=== PATIENT | male | born 1960 | race Caucasian/White ===

== ENCOUNTER 2017-01-06 15:01 | Observation (INO) | payer OTHER ==
[~2017-01-06] VITALS: Ht 165.1 cm; Wt 70.0 kg
[~2017-01-06 15:01] MED LIST: ALLE10TA5 PO; CALCCHW25 PO; MULTCAP14 PO; RIVA20 PO; VITA500C PO
[2017-01-06 15:04] VITALS: BP 144/70; PULSE 71; RESP 18; TEMP 98.6; O2SAT 100
[2017-01-06 17:10] VITALS: BP 144/64; PULSE 75; RESP 18; O2SAT 100
[2017-01-06] MEDS ORDERED: ACETAMINOPHEN/HYDROcodone 325 MG/5 MG TAB PO ONE (17:15)
--- NOTE | 2017-01-06 18:05 | PD ---
HPI Chief Complaint: Edema Time Seen by Provider: 18:01 Travel History International Travel<30 days: No Contact w/Intl Traveler<30days: No Traveled to known affect area: No History of Present Illness HPI 56-year-old male that presents to the ED via private vehicle for evaluation of left leg swelling and pain for the past 2-3 days. 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 Per patient he used to be on blood thinners smoking no longer takes them because he had no primary care doctor. Per patient he went today to his first appointment with his new doctor Dr. Osman from [facility] and he mentioned of the swelling and he was told to come here. He states that he did not hurt himself. He denies any chest pain or shortness of breath. He did taken anything for this. Per patient the swelling started yesterday. No recent travel. Patient is a smoker. Patient was told to come here by the doctor with a note that says that patient is to come here to get evaluated for this possible DVT. Per patient the pain is 7 out of 10. Worse with touch. Takes no medications at home. Has no allergies to medication. Denies any fevers chills or sweats. No drainage. PFSH Past Medical History Autoimmune Disease: No Blood Disorders: Yes (blood clots (previous dvt)) Anxiety: Yes Depression: Yes Cancer: No Cardiovascular Problems: No Diminished Hearing: No Endocrine: No Genitourinary: No Immune Disorder: No Musculoskeletal: No Neurologic: No Psychiatric: Yes Reproductive: No Respiratory: No Immunizations Current: Yes Tetanus Vaccination: < 5 Years Past Surgical History Pacemaker: No Social History Alcohol Use: No Tobacco Use: Yes (1/4 pack) Substance Use: No Allergies-Medications (Allergen,Severity, Reaction): Coded Allergies: No Known Allergies (Unverified , 07/24/15) Reported Meds & Prescriptions Reported Meds & Active Scripts Active No Active Prescriptions or Reported Medications Review of Systems Except as stated in HPI: all other systems reviewed are Neg Physical Exam Narrative GENERAL: SKIN: Warm and dry. HEAD: Atraumatic. Normocephalic. EYES: Pupils equal and round 4 mm reactive to light and accomodation. No scleral icterus. No injection or drainage. ENT: No nasal bleeding or discharge. Mucous membranes pink and moist. Tongue is midline. No uvula deviation. NECK: Trachea midline. No JVD. CARDIOVASCULAR: Regular rate and rhythm. No murmurs, S3, S4. RESPIRATORY: No accessory muscle use. Clear to auscultation. Breath sounds equal bilaterally. GASTROINTESTINAL: Abdomen soft, non-tender, nondistended. Hepatic and splenic margins not palpable. MUSCULOSKELETAL: Extremities without clubbing, cyanosis, or edema. No obvious deformities. Full range of motion of the upper and lower extremities bilaterally. 2+ pulses bilaterally. Patient does have 2+ pitting edema on the left lower extremity compared to the right. Tender to touch as well as on the cough and the medial aspect. NEUROLOGICAL: Awake and alert. No obvious cranial nerve deficits. Motor grossly within normal limits. Five out of 5 muscle strength in the arms and legs. Normal speech. PSYCHIATRIC: Appropriate mood and affect; insight and judgment normal. Data Data Last Documented VS Vital Signs Date Time Temp Pulse Resp B/P Pulse Ox O2 Delivery O2 Flow Rate FiO2 01/06/17 17:10 75 18 144/64 100 Room Air 01/06/17 15:04 98.6 Orders Us Leg Venous Doppler (01/06/17 16:59) Electrocardiogram (01/06/17 16:59) Complete Blood Count With Diff (01/06/17 16:59) Comprehensive Metabolic Panel (01/06/17 16:59) Prothrombin Time / Inr (Pt) (01/06/17 16:59) Act Partial Throm Time (Ptt) (01/06/17 16:59) Iv Access Insert/Monitor (01/06/17 16:59) Ecg Monitoring (01/06/17 16:59) Oximetry (01/06/17 16:59) B-Type Natriuretic Peptide (01/06/17 16:59) Acetamin-Hydrocod 325-5 Mg ([place] 5-325 (01/06/17 17:15) Admit Order (Ed Use Only) (01/06/17 19:35) Enoxaparin Inj (Lovenox Inj) (01/06/17 19:45) Labs Laboratory Tests Test 01/06/17 17:45 White Blood Count 8.1 TH/MM3 Red Blood Count 4.17 MIL/MM3 Hemoglobin 13.5 GM/DL Hematocrit 40.0 % Mean Corpuscular Volume 95.9 FL Mean Corpuscular Hemoglobin 32.3 PG Mean Corpuscular Hemoglobin 33.7 % Concent Red Cell Distribution Width 15.6 % Platelet Count 207 TH/MM3 Mean Platelet Volume 7.7 FL Neutrophils (%) (Auto) 58.7 % Lymphocytes (%) (Auto) 23.5 % Monocytes (%) (Auto) 10.4 % Eosinophils (%) (Auto) 6.0 % Basophils (%) (Auto) 1.4 % Neutrophils # (Auto) 4.7 TH/MM3 Lymphocytes # (Auto) 1.9 TH/MM3 Monocytes # (Auto) 0.8 TH/MM3 Eosinophils # (Auto) 0.5 TH/MM3 Basophils # (Auto) 0.1 TH/MM3 CBC Comment DIFF FINAL Differential Comment Prothrombin Time 11.0 SEC Prothromb Time International 1.0 RATIO Ratio Activated Partial 27.0 SEC Thromboplast Time Sodium Level 130 MEQ/L Potassium Level 3.8 MEQ/L Chloride Level 95 MEQ/L Carbon Dioxide Level 26.4 MEQ/L Anion Gap 9 MEQ/L Blood Urea Nitrogen 3 MG/DL Creatinine 0.96 MG/DL Estimat Glomerular Filtration 81 ML/MIN Rate Random Glucose 96 MG/DL Calcium Level 8.1 MG/DL Total Bilirubin 0.6 MG/DL Aspartate Amino Transf 28 U/L (AST/SGOT) Alanine Aminotransferase 19 U/L (ALT/SGPT) Alkaline Phosphatase 116 U/L B-Type Natriuretic Peptide 27 PG/ML Total Protein 7.3 GM/DL Albumin 2.9 GM/DL [facility] Medical Decision Making Medical Screen Exam Complete: Yes Emergency Medical Condition: Yes Medical Record Reviewed: Yes Interpretation(s) CBC & BMP Diagram 01/06/17 17:45 Coags WNL LFTS WNL BNP negative EKG shows sinus rhythm with no sign of acute ischemia or arrhythmia. Read by me and attending. Last Impressions Lower Extremity Ultrasound 01/06/17 3476 Signed Impressions: Service Date/Time: Friday, January 06, 2017 17:14 - CONCLUSION: 1. Extensive deep venous thrombosis left lower extremity. Hector Starks MD Differential Diagnosis DVT versus leg swelling versus heart failure versus cellulitis Narrative Course 56-year-old male that presents to the ED for evaluation of left lower leg swelling. Patient was properly examined and was found to have signs and symptoms concerning for DVT. Imaging and labs were ordered. Labs and imaging showed extensive DVT on the left leg. My attending Dr. Sewell recommends admission for treatment as patient is a known noncompliant. Patient does have an extensive blood clot likely require anticoagulations with bridging to Coumadin. Spoke with Dr. Bonilla who agrees to admission for Lovenox and bridging to Coumadin. Diagnosis Primary Impression: DVT (deep venous thrombosis) Qualified Code: I82.402 - Acute deep vein thrombosis (DVT) of left lower extremity, unspecified vein Additional Impression: Non-compliant behavior Admitting Information Admitting Physician Requests: Observation Scripts No Active Prescriptions or Reported Meds Denotn Snyder Jan 06, 2017 18:05
[2017-01-06 18:09] LABS: AUTOMATED NEUTROPHIL # 4.7 TH/MM3 (1.8-7.7); BASOPHIL # 0.1 TH/MM3 (0-0.2); BASOPHIL % 1.4 % (0.0-2.0); EOSINOPHIL # 0.5 TH/MM3 (0-0.4); HEMO FLAGS DIFF FINAL; LYMPH % 23.5 % (9.0-44.0); LYMPHOCYTE # 1.9 TH/MM3 (1.0-4.8); MEAN CELL VOLUME 95.9 FL (80.0-100.0); MEAN CORPUSCULAR HEMOGLOBIN 32.3 PG (27.0-34.0); MEAN CORPUSCULAR HGB CONC 33.7 % (32.0-36.0); MONO % 10.4 % (0.0-8.0); NEUT % 58.7 % (16.0-70.0); PLATELET COUNT 207 TH/MM3 (150-450); RED BLOOD COUNT 4.17 MIL/MM3 (4.50-5.90); RED CELL DISTRIBUTION WIDTH 15.6 % (11.6-17.2); WHITE BLOOD COUNT 8.1 TH/MM3 (4.0-11.0)
[2017-01-06 18:31] LABS: ALT (GPT) 19 U/L (12-78); ANION GAP 9 MEQ/L (5-15); AST (GOT) 28 U/L (15-37); BICARBONATE 26.4 MEQ/L (21.0-32.0); BLOOD UREA NITROGEN 3 MG/DL (7-18); CHLORIDE 95 MEQ/L (98-107); GLOMERULAR FILTRATION RATE 81 ML/MIN (>89); POTASSIUM 3.8 MEQ/L (3.5-5.1); SODIUM (NA) 130 MEQ/L (136-145)
[2017-01-06 18:33] LABS: ALKALINE PHOSPHATASE 116 U/L (45-117); TOTAL BILIRUBIN ADULT 0.6 MG/DL (0.2-1.0)
--- NOTE | 2017-01-06 18:54 | RADRPT ---
EXAM DATE/TIME: 01/06/2017 17:14 [place] COMPARISON: No previous studies available for comparison. INDICATIONS : Left leg swelling. MEDICAL HISTORY : Deep venous thrombosis. Tobacco use. Depression. Anxiety. MRSA. SURGICAL HISTORY : Blood transfusions. Anal surgery. Head surgery. ENCOUNTER: Initial ACUITY: 4 - 6 days PAIN SCORE: 5/10 LOCATION: Left leg. TECHNIQUE: Venous ultrasound of the leg was performed from the inguinal ligament to the proximal calf. Real-kimberly e, color Doppler and spectral tracing, compression and augmentation techniques were used. FINDINGS: The examination is positive for deep venous thrombosis extending from the left iliac vein to the post erior tibial vein. Also thrombus in greater saphenous vein. Minimal flow in posterior tibial vein. CONCLUSION: 1. Extensive deep venous thrombosis left lower extremity. Hector Starks MD on January 06, 2017 at 18:50 Board Certified Radiologist. This report was verified electronically.
--- NOTE | 2017-01-06 19:16 | PD ---
Data Data Last Documented VS Vital Signs Date Time Temp Pulse Resp B/P Pulse Ox O2 Delivery O2 Flow Rate FiO2 01/06/17 17:10 75 18 144/64 100 Room Air 01/06/17 15:04 98.6 Orders Us Leg Venous Doppler (01/06/17 16:59) Electrocardiogram (01/06/17 16:59) Complete Blood Count With Diff (01/06/17 16:59) Comprehensive Metabolic Panel (01/06/17 16:59) Prothrombin Time / Inr (Pt) (01/06/17 16:59) Act Partial Throm Time (Ptt) (01/06/17 16:59) Iv Access Insert/Monitor (01/06/17 16:59) Ecg Monitoring (01/06/17 16:59) Oximetry (01/06/17 16:59) B-Type Natriuretic Peptide (01/06/17 16:59) Acetamin-Hydrocod 325-5 Mg ([place] 5-325 (01/06/17 17:15) Labs Laboratory Tests Test 01/06/17 17:45 White Blood Count 8.1 TH/MM3 Red Blood Count 4.17 MIL/MM3 Hemoglobin 13.5 GM/DL Hematocrit 40.0 % Mean Corpuscular Volume 95.9 FL Mean Corpuscular Hemoglobin 32.3 PG Mean Corpuscular Hemoglobin 33.7 % Concent Red Cell Distribution Width 15.6 % Platelet Count 207 TH/MM3 Mean Platelet Volume 7.7 FL Neutrophils (%) (Auto) 58.7 % Lymphocytes (%) (Auto) 23.5 % Monocytes (%) (Auto) 10.4 % Eosinophils (%) (Auto) 6.0 % Basophils (%) (Auto) 1.4 % Neutrophils # (Auto) 4.7 TH/MM3 Lymphocytes # (Auto) 1.9 TH/MM3 Monocytes # (Auto) 0.8 TH/MM3 Eosinophils # (Auto) 0.5 TH/MM3 Basophils # (Auto) 0.1 TH/MM3 CBC Comment DIFF FINAL Differential Comment Prothrombin Time 11.0 SEC Prothromb Time International 1.0 RATIO Ratio Activated Partial 27.0 SEC Thromboplast Time Sodium Level 130 MEQ/L Potassium Level 3.8 MEQ/L Chloride Level 95 MEQ/L Carbon Dioxide Level 26.4 MEQ/L Anion Gap 9 MEQ/L Blood Urea Nitrogen 3 MG/DL Creatinine 0.96 MG/DL Estimat Glomerular Filtration 81 ML/MIN Rate Random Glucose 96 MG/DL Calcium Level 8.1 MG/DL Total Bilirubin 0.6 MG/DL Aspartate Amino Transf 28 U/L (AST/SGOT) Alanine Aminotransferase 19 U/L (ALT/SGPT) Alkaline Phosphatase 116 U/L B-Type Natriuretic Peptide 27 PG/ML Total Protein 7.3 GM/DL Albumin 2.9 GM/DL [facility] Supervised Visit with ALONZO: Yes Narrative Course The history, exam, and medical decision-making in the associated mid-level provider note were completed with my assistance. I reviewed and agree with the findings presented. I attest that I had a [id number] encounter with the patient on the same day, and personally performed and documented my assessment and findings in the medical record. *My assessment and Findings: 56-year-old man presents to the emergency department with worsening lower extremity weakness. History of right sided DVT. Noncompliant medications due to cost. Went to see a doctor with [facility] today. Worsening left- sided edema. He has significant diffuse left lower extremity edema erythema redness pain and swelling. Ultrasound shows extensive DVT. Patient is disheveled, covered in feces, with a history of noncompliance. We'll plan on admission for anticoagulation, monitoring, consideration of intervention if needed. Diagnosis Primary Impression: DVT (deep venous thrombosis) Additional Impression: Non-compliant behavior Scripts No Active Prescriptions or Reported Meds Juarez Sewell MD Jan 06, 2017 19:16
[2017-01-06] MEDS ORDERED: ENOXAPARIN SODIUM 80 MG/0.8 ML SYRINGE SQ ONE (19:45)
[2017-01-06] MEDS ORDERED: LACTULOSE SYRUP 20 GM/30 ML CUP PO PRN (21:00)
[2017-01-06] MEDS ORDERED: ONDANSETRON HCL 4 MG/2 ML VIAL IVP PRN (21:00)
[2017-01-06] MEDS: DOCUSATE SODIUM 50 MG/SENNA 8.6 MG TAB PO SCH (21:00)
[2017-01-06] MEDS ORDERED: NALOXONE HCL 0.4 MG/ML AMP IV PRN (21:00)
[2017-01-06] MEDS ORDERED: SENNOSIDES 8.6 MG TAB PO PRN (21:00)
[2017-01-06] MEDS ORDERED: ACETAMINOPHEN 325 MG TAB PO PRN (21:00)
[2017-01-06] MEDS ORDERED: BISACODYL 10 MG SUPP RECTAL PRN (21:00)
[2017-01-06] MEDS ORDERED: MAGNESIUM HYDROXIDE SUSP 30 ML CUP PO PRN (21:00)
[2017-01-06] MEDS ORDERED: SODIUM CHLORIDE 0.9% FLUSH 10 ML FLUSH IV FLUSH PRN (21:00)
[2017-01-06] MEDS ORDERED: HYDROmorphone HCL PF 1 MG/ML VIAL IV PRN (21:00)
--- NOTE | 2017-01-06 21:02 | HHI.HP ---
HPI Service [facility] Hospitalists Primary Care Physician No Primary Care Physician Admission Diagnosis acute left DVT, non compliant patient Chief Complaint: 2 days pain and swelling left leg Travel History International Travel<30 Days: No Contact w/Intl Traveler <30 Da: No Traveled to Known Affected Are: No History of Present Illness 56 y/o male with hx dvt and has been on blood thinners in past but lost insurance and had no doctor now member [facility] and went to see his PCP saw patient left leg which has been swollen and painful for 2 days and was sent to er and found to have extensive DVT left leg . Patient has been poor compliant in past will start lovenox and coumadin . No other symptoms no SOB ,chest pain nausea or vomit. Review of Systems Musculoskeletal: COMPLAINS OF: Joint Swelling Past Family Social History Past Medical History DVT Past Surgical History none Reported Medications no meds Allergies: Coded Allergies: No Known Allergies (Unverified , 07/24/15) Social History smokes 1/4 ppd Physical Exam Vital Signs Vital Signs Date Time Temp Pulse Resp B/P Pulse Ox O2 Delivery O2 Flow Rate FiO2 01/06/17 17:10 75 18 144/64 100 Room Air 01/06/17 15:04 98.6 71 18 144/70 100 Physical Exam GENERAL: This is a well-nourished, well-developed patient, in no apparent distress. SKIN: No rashes, ecchymoses or lesions. Cool and dry. HEAD: Atraumatic. Normocephalic. No temporal or scalp tenderness. EYES: Pupils equal round and reactive. Extraocular motions intact. No scleral icterus. No injection or drainage. ENT: Nose without bleeding, purulent drainage or septal hematoma. Throat without erythema, tonsillar hypertrophy or exudate. Uvula midline. Airway patent. NECK: Trachea midline. No JVD or lymphadenopathy. Supple, nontender, no meningeal signs. CARDIOVASCULAR: Regular rate and rhythm without murmurs, gallops, or rubs. RESPIRATORY: Clear to auscultation. Breath sounds equal bilaterally. No wheezes , rales, or rhonchi. GASTROINTESTINAL: Abdomen soft, non-tender, nondistended. No hepato-splenomegaly , or palpable masses. No guarding. MUSCULOSKELETAL: Extremities without clubbing, cyanosis, left leg plus 2 edema painful to touch NEUROLOGICAL: Awake and alert. Cranial nerves II through XII intact. Motor and sensory grossly within normal limits. Five out of 5 muscle strength in all muscle groups. Normal speech. Laboratory Laboratory Tests Test 01/06/17 17:45 White Blood Count 8.1 Red Blood Count 4.17 Hemoglobin 13.5 Hematocrit 40.0 Mean Corpuscular Volume 95.9 Mean Corpuscular Hemoglobin 32.3 Mean Corpuscular Hemoglobin 33.7 Concent Red Cell Distribution Width 15.6 Platelet Count 207 Mean Platelet Volume 7.7 Neutrophils (%) (Auto) 58.7 Lymphocytes (%) (Auto) 23.5 Monocytes (%) (Auto) 10.4 Eosinophils (%) (Auto) 6.0 Basophils (%) (Auto) 1.4 Neutrophils # (Auto) 4.7 Lymphocytes # (Auto) 1.9 Monocytes # (Auto) 0.8 Eosinophils # (Auto) 0.5 Basophils # (Auto) 0.1 CBC Comment DIFF FINAL Differential Comment Prothrombin Time 11.0 Prothromb Time International 1.0 Ratio Activated Partial 27.0 Thromboplast Time Sodium Level 130 Potassium Level 3.8 Chloride Level 95 Carbon Dioxide Level 26.4 Anion Gap 9 Blood Urea Nitrogen 3 Creatinine 0.96 Estimat Glomerular Filtration 81 Rate Random Glucose 96 Calcium Level 8.1 Total Bilirubin 0.6 Aspartate Amino Transf 28 (AST/SGOT) Alanine Aminotransferase 19 (ALT/SGPT) Alkaline Phosphatase 116 B-Type Natriuretic Peptide 27 Total Protein 7.3 Albumin 2.9 Result Diagram: 01/06/17 1745 01/06/17 1745 Imaging Last 24 hours Impressions Lower Extremity Ultrasound 01/06/17 1659 Signed Impressions: Service Date/Time: Friday, January 06, 2017 17:14 - CONCLUSION: 1. Extensive deep venous thrombosis left lower extremity. Hector Starks MD Course in er started on lovenox Assessment and Plan Problem List: (1) DVT (deep venous thrombosis) Status: Acute Plan: start lovenox and coumadin will need home health and close follow up with medications . Assessment and Plan as above Code Status full Discussed Condition With patient Problem Qualifiers (1) DVT (deep venous thrombosis): Ruben Whitley MD Jan 06, 2017 21:02
[2017-01-06] MEDS ORDERED: ACETAMINOPHEN/HYDROcodone 325 MG/5 MG TAB PO PRN (21:15)
[2017-01-06] MEDS: ENOXAPARIN SODIUM 80 MG/0.8 ML SYRINGE SQ SCH (21:15)
[2017-01-06] MEDS: SODIUM CHLORIDE 0.9% FLUSH 10 ML FLUSH IV FLUSH SCH (21:38)
[2017-01-06 21:39] VITALS: BP 122/73; PULSE 85; RESP 18; O2SAT 98
[2017-01-07] VITALS (7 sets, daily range): BP systolic 95–115; BP diastolic 59–66; PULSE 65–83; RESP 16–20; TEMP 97.4–99.1; O2SAT 97–100
--- NOTE | 2017-01-07 06:50 | EKG ---
Date Performed: 01/06/2017 Time Performed: 17:24:08 PTAGE: 56 years EKG: Sinus rhythm WITH SINUS ARRHYTHMIA NORMAL ECG PREVIOUS TRACING : 04/07/2014 13.01 No significant change from previous tracing noted. DOCTOR: Vasu Rodriguez Interpretating Date/Time 01/07/2017 06:49:22
[2017-01-07 07:52] LABS: AUTOMATED NEUTROPHIL # 2.6 TH/MM3 (1.8-7.7); BASOPHIL # 0.1 TH/MM3 (0-0.2); BASOPHIL % 2.1 % (0.0-2.0); EOSINOPHIL # 0.6 TH/MM3 (0-0.4); EOSINOPHIL % 9.5 % (0.0-4.0); HEMATOCRIT 37.6 % (39.0-51.0); HEMO FLAGS DIFF FINAL; LYMPH % 32.8 % (9.0-44.0); MEAN CELL VOLUME 96.1 FL (80.0-100.0); MEAN CORPUSCULAR HGB CONC 34.4 % (32.0-36.0); NEUT % 43.6 % (16.0-70.0); PLATELET COUNT 204 TH/MM3 (150-450); RED BLOOD COUNT 3.91 MIL/MM3 (4.50-5.90); RED CELL DISTRIBUTION WIDTH 15.8 % (11.6-17.2)
[2017-01-07 08:10] LABS: ANION GAP 9 MEQ/L (5-15); AST (GOT) 19 U/L (15-37); BICARBONATE 26.2 MEQ/L (21.0-32.0); BLOOD UREA NITROGEN 5 MG/DL (7-18); CHLORIDE 100 MEQ/L (98-107); GLOMERULAR FILTRATION RATE 91 ML/MIN (>89); POTASSIUM 3.7 MEQ/L (3.5-5.1); SODIUM (NA) 135 MEQ/L (136-145)
[2017-01-07 08:12] LABS: ALT (GPT) 14 U/L (12-78)
[2017-01-07 08:13] LABS: ALKALINE PHOSPHATASE 94 U/L (45-117); TOTAL BILIRUBIN ADULT 0.5 MG/DL (0.2-1.0)
--- NOTE | 2017-01-07 09:27 | HHI.PR ---
Subjective Remarks Pt without any specific complaints this morning He states that his LLE is painful still but he has not required any pain medications. Denies any fevers or chills. Pt reportedly lives with roommates No family locally, no children He appears quite unkept Objective Vitals Vital Signs Date Time Temp Pulse Resp B/P Pulse Ox O2 Delivery O2 Flow Rate FiO2 01/07/17 05:10 98.1 75 18 97/59 97 01/07/17 00:05 98.5 65 18 113/63 97 01/06/17 21:39 85 18 122/73 98 Room Air 01/06/17 17:10 75 18 144/64 100 Room Air 01/06/17 15:04 98.6 71 18 144/70 100 01/06/17 01/06/17 01/07/17 15:00 23:00 07:00 Intake Total 200 ml Balance 200 ml Intake Oral 200 ml Result Diagram: 01/07/1717 01/07/17 0617 Other Results Laboratory Tests Test 01/06/17 01/07/17 17:45 06:17 White Blood Count 8.1 TH/MM3 6.0 TH/MM3 Red Blood Count 4.17 MIL/MM3 3.91 MIL/MM3 Hemoglobin 13.5 GM/DL 12.9 GM/DL Hematocrit 40.0 % 37.6 % Mean Corpuscular Volume 95.9 FL 96.1 FL Mean Corpuscular Hemoglobin 32.3 PG 33.0 PG Mean Corpuscular Hemoglobin 33.7 % 34.4 % Concent Red Cell Distribution Width 15.6 % 15.8 % Platelet Count 207 TH/MM3 204 TH/MM3 Mean Platelet Volume 7.7 FL 7.8 FL Neutrophils (%) (Auto) 58.7 % 43.6 % Lymphocytes (%) (Auto) 23.5 % 32.8 % Monocytes (%) (Auto) 10.4 % 12.0 % Eosinophils (%) (Auto) 6.0 % 9.5 % Basophils (%) (Auto) 1.4 % 2.1 % Neutrophils # (Auto) 4.7 TH/MM3 2.6 TH/MM3 Lymphocytes # (Auto) 1.9 TH/MM3 2.0 TH/MM3 Monocytes # (Auto) 0.8 TH/MM3 0.7 TH/MM3 Eosinophils # (Auto) 0.5 TH/MM3 0.6 TH/MM3 Basophils # (Auto) 0.1 TH/MM3 0.1 TH/MM3 CBC Comment DIFF FINAL DIFF FINAL Differential Comment Prothrombin Time 11.0 SEC Prothromb Time International 1.0 RATIO Ratio Activated Partial 27.0 SEC Thromboplast Time Sodium Level 130 MEQ/L 135 MEQ/L Potassium Level 3.8 MEQ/L 3.7 MEQ/L Chloride Level 95 MEQ/L 100 MEQ/L Carbon Dioxide Level 26.4 MEQ/L 26.2 MEQ/L Anion Gap 9 MEQ/L 9 MEQ/L Blood Urea Nitrogen 3 MG/DL 5 MG/DL Creatinine 0.96 MG/DL 0.87 MG/DL Estimat Glomerular Filtration 81 ML/MIN 91 ML/MIN Rate Random Glucose 96 MG/DL 73 MG/DL Calcium Level 8.1 MG/DL 7.8 MG/DL Total Bilirubin 0.6 MG/DL 0.5 MG/DL Aspartate Amino Transf 28 U/L 19 U/L (AST/SGOT) Alanine Aminotransferase 19 U/L 14 U/L (ALT/SGPT) Alkaline Phosphatase 116 U/L 94 U/L B-Type Natriuretic Peptide 27 PG/ML Total Protein 7.3 GM/DL 6.0 GM/DL Albumin 2.9 GM/DL 2.4 GM/DL Imaging Last 24 hours Impressions Lower Extremity Ultrasound 01/06/17 3749 Signed Impressions: Service Date/Time: Friday, January 06, 2017 17:14 - CONCLUSION: 1. Extensive deep venous thrombosis left lower extremity. Hector Starks MD Objective Remarks General: NAD, AAOx3 Chest: CTA Cardiac: Regular Abd: +BS, soft ND/NT Ext: LLE with swelling and erythema/warmth from the foot to the knee A/P Problem List: (1) DVT (deep venous thrombosis) Status: Acute Plan: - Pt is a 56 y/o male with Hx of RLE DVT x 2 (2011 and 2014), hx of bilateral PE (2013), and hx of right lung empyema s/p decortication/chest tube and bronchoscopy (2013). Pt had previously been on Coumadin for his hx of DVT/ PE but has not been taking this for several months as he had a lapse in insurance coverage and medical care. The last anticoagulant he was on was Xarelto. Prior to that he was on Coumadin. - Previous hypercoagulable testing in 2014 noted him to be a heterozygous carrier of factor V Leiden with mutation on ONE allele. - Pt recently established with [facility] and was seen for the first time by his PCP, Dr. Marcus Osman, on 01/06/17 with complaints of LLE swelling and discoloration that began the day prior. He was sent to the ED for further evaluation. - LE US in the ED revealed extensive deep venous thrombosis left lower extremity , extending from the left iliac vein to the posterior tibial vein, also thrombus in greater saphenous vein. Minimal flow in posterior tibial vein. . - He is a long time smoker - Pt was started on Lovenox 70mg Q12H and Coumadin 10mg po daily at admission. - I called [facility] pharmacy to get pricing for new anticoagulants, Eliquis which would be $369.12 for a month supply and Xarelto which would be $791.55 for a month so the pt will be unable to afford these. We will continue the Coumadin and Lovenox for now. - Nursing staff to bathe the pt today. - PT evaluation today - Supportive care - Consider SNF placement at discharge for medical management. - If refusing SNF then he will need HHC and close outpt followup. Assessment and Plan Patient examined. Assessment and plan formulated with Letty De Leon PA-C. I agree with the above. Problem Qualifiers (1) DVT (deep venous thrombosis): Letty De Leon Jan 07, 2017 09:27 Odilon Pinto DO Jan 08, 2017 10:32
[2017-01-07] MEDS: SODIUM CHLORIDE 0.9% FLUSH 10 ML FLUSH IV FLUSH SCH ×2 (09:39→21:00)
[2017-01-07] MEDS: ENOXAPARIN SODIUM 80 MG/0.8 ML SYRINGE SQ SCH ×2 (09:39→21:00)
[2017-01-07] MEDS: DOCUSATE SODIUM 50 MG/SENNA 8.6 MG TAB PO SCH ×2 (09:39→21:00)
[2017-01-07] MEDS ORDERED: MISCELLANEOUS NURSING INFORMATION ONE (10:00)
[2017-01-07] MEDS ORDERED: WARFARIN SOD 10 MG TAB PO SCH (16:00)
[2017-01-08 03:31] VITALS: BP 118/64; PULSE 75; RESP 20; TEMP 97.3; O2SAT 99
[2017-01-08 07:22] VITALS: BP 107/65; PULSE 65; RESP 16; TEMP 98.9; O2SAT 98
[2017-01-08] MEDS ORDERED: PNEUMOCOCCAL POLYVALENT INJ 25 MCG/0.5 ML SYR IM ONE (10:00)
[2017-01-08] MEDS: DOCUSATE SODIUM 50 MG/SENNA 8.6 MG TAB PO SCH (10:09)
[2017-01-08] MEDS: SODIUM CHLORIDE 0.9% FLUSH 10 ML FLUSH IV FLUSH SCH (10:09)
[2017-01-08] MEDS: ENOXAPARIN SODIUM 80 MG/0.8 ML SYRINGE SQ SCH (10:10)
--- NOTE | 2017-01-08 10:16 | HHI.FF ---
Face to Face Verification Diagnosis: (1) Deep vein thrombosis (DVT) of left lower extremity Home Health Nursing Order: Medical education Signs/symptoms of disease process Medication education-adverse effect Nursing assessment with vital signs Instructions: INR daily and send results to pt's PCP, Dr. Marcus Osman Lovenox daily once INR above 2, then stop daily lovenox and change INR to every thursday & I have seen patient Nathan Day on 01/08/17. My clinical findings support the need for the requested home health care services because: Med compliance is questionable Limited ability to care for self Need for psychosocial assistance I certify that my clinical findings support that this patient is homebound because: Need for psychosocial assistance Odilon Pinto DO Jan 08, 2017 10:16
[2017-01-08] MEDS ORDERED: COUM5TAB PO (10:29)
[2017-01-08] MEDS ORDERED: ENOXAPARIN SODIUM 30 MG/0.3 ML SYRINGE SQ ONE (10:30)
--- NOTE | 2017-01-08 10:40 | HHI.PR ---
Subjective Remarks Pt continues with LLE edema, but NOT requiring pain medication. Pt is tolerating PO intake. NO n/v/d Pt denies SOB. Objective Vitals Vital Signs Date Time Temp Pulse Resp B/P Pulse Ox O2 Delivery O2 Flow Rate FiO2 01/08/17 07:22 98.9 65 16 107/65 98 01/08/17 03:31 97.3 75 20 118/64 99 01/07/17 22:47 99.1 73 19 113/60 98 01/07/17 19:11 97.4 83 20 95/65 100 01/07/17 16:00 98.7 70 16 115/59 98 01/07/17 12:00 97.5 78 16 103/66 98 01/07/17 01/07/17 01/08/17 15:00 23:00 07:00 Intake Total 720 ml Output Total 325 ml 125 ml Balance 395 ml -125 ml Intake Oral 720 ml Output Urine Total 325 ml 125 ml # Voids 3 1 Result Diagram: 01/07/1717 01/07/17616 Imaging Last Impressions Lower Extremity Ultrasound 01/06/17 1659 Signed Impressions: Service Date/Time: Friday, January 06, 2017 17:14 - CONCLUSION: 1. Extensive deep venous thrombosis left lower extremity. Hector Starks MD Objective Remarks General: NAD, AAOx3 Chest: CTA Cardiac: Regular Abd: +BS, soft ND/NT Ext: LLE with swelling and erythema/warmth from the foot to the knee A/P Problem List: (1) DVT (deep venous thrombosis) Status: Acute Plan: - Pt is a 56 y/o male with Hx of RLE DVT x 2 (2011 and 2014), hx of bilateral PE (2013), and hx of right lung empyema s/p decortication/chest tube and bronchoscopy (2013). Pt had previously been on Coumadin for his hx of DVT/ PE but has not been taking this for several months as he had a lapse in insurance coverage and medical care. The last anticoagulant he was on was Xarelto. Prior to that he was on Coumadin. - Previous hypercoagulable testing in 2014 noted him to be a heterozygous carrier of factor V Leiden with mutation on ONE allele. - Pt recently established with [facility] and was seen for the first time by his PCP, Dr. Marcus Osman, on 01/06/17 with complaints of LLE swelling and discoloration that began the day prior. He was sent to the ED for further evaluation. - LE US in the ED revealed extensive deep venous thrombosis left lower extremity , extending from the left iliac vein to the posterior tibial vein, also thrombus in greater saphenous vein. Minimal flow in posterior tibial vein. . - He is a long time smoker - Pt was started on Lovenox 70mg Q12H and Coumadin 10mg po daily at admission. - [facility] pharmacy was called to get pricing for new anticoagulants, Eliquis which would be $369.12 for a month supply and Xarelto which would be $791.55 for a month so the pt will be unable to afford these. We will continue the Coumadin and Lovenox for now. - PT - Supportive care - Pt adamantly refused SNF. I discussed this with the pt both yesterday and today (01/08/17) - I continue to feel that SNF would be better option for this patient. I am certainly concerned that he will not do well as an outpatient given his social dynamics. - If patient fails to be compliant with his anticoagulation regimen, patient is at risk for readmission, worsening disease, pulmonary embolism, and . - I have explained the above to Mr. Day. - I have arranged home health care to assist with patient's anticoagulation - Patient will need daily INR and daily Lovenox until his INR is above 2. Once INR is therapeutic, patient will continue to need monitoring of his INR and Coumadin regimen. - Patient is to follow-up with his primary care physician, Dr. Marcus Osman, and one week - Patient is to follow-up with [facility] [place] for oncology in 4 weeks - Please see discharge orders - Pt was interviewed and examined together with Letty De Leon PA-C. Problem Qualifiers (1) DVT (deep venous thrombosis): Odilon Pinto DO Jan 08, 2017 10:40
[2017-01-08] MEDS ORDERED: ENOX100P SQ (10:48)
[2017-01-08 11:00] VITALS: BP 109/69; PULSE 99; RESP 16; TEMP 98.9; O2SAT 98
[2017-01-08 11:23] LABS: INTERNATIONAL NORMALIZED RATIO 1.2 RATIO; PROTHROMBIN TIME - PATIENT 12.9 SEC (9.8-11.6)
== END 2017-01-08 13:46 | disposition home or self-care (01) ==
LOC: NEPC 15:01 → NEDA 19:37 → NEPGCP 22:04
PROVIDERS: ADMIT Hospitalist; ATTEND Hospitalist
DX: I82.422 Acute embolism and thrombosis of left iliac vein (principal); I82.442 Acute embolism and thrombosis of left tibial vein; Z86.711 Personal history of pulmonary embolism; Z79.01 Long term (current) use of anticoagulants; Z91.19 Patient's noncompliance with other medical treatment and regimen; F17.200 Nicotine dependence, unspecified, uncomplicated; Z23 Encounter for immunization
CPT/HCPCS: 80053; 83880; 85025; 85610; 85730; 90732; 93005; 93971; 97163; 99285; G0378; G8987; G8988; J1650

== ENCOUNTER 2017-08-24 16:09 | Emergency (ER) | payer OTHER ==
[~2017-08-24] VITALS: Ht 177.8 cm; Wt 68.2 kg
[~2017-08-24 16:09] MED LIST changes: -ALLE10TA5 PO; -CALCCHW25 PO; +COUM5TAB PO; +ENOX100P SQ; -MULTCAP14 PO; -RIVA20 PO; -VITA500C PO
[2017-08-24 16:11] VITALS: BP 131/62; PULSE 73; RESP 18; TEMP 98.2; O2SAT 100
--- NOTE | 2017-08-24 17:15 | RADRPT ---
EXAM DATE/TIME: 08/24/2017 16:28 [facility] COMPARISON: CHEST SINGLE AP, May 01, 2014, 13:27. INDICATIONS : Short of breath. MEDICAL HISTORY : Chronic obstructive pulmonary disease. SURGICAL HISTORY : None. ENCOUNTER: Initial ACUITY: 2 days PAIN SCORE: 0/10 LOCATION: Bilateral chest FINDINGS: Moderate hyperinflation with mild progression progression of the parenchymal changes right lower lobe . Left lung clear. The heart and pulmonary vascularity are normal. The portion of the bony skeleton visualized is unremarkable. CONCLUSION: Hyperinflation with mild progression of the parenchymal changes right lower lobe.. Slick Obrien MD FACR on August 24, 2017 at 17:12 Board Certified Radiologist. This report was verified electronically.
[2017-08-24 17:36] LABS: AUTOMATED NEUTROPHIL # 4.5 TH/MM3 (1.8-7.7); BASOPHIL # 0.2 TH/MM3 (0-0.2); BASOPHIL % 1.9 % (0.0-2.0); EOSINOPHIL # 0.4 TH/MM3 (0-0.4); EOSINOPHIL % 4.7 % (0.0-4.0); HEMOGLOBIN 10.9 GM/DL (13.0-17.0); LYMPH % 30.6 % (9.0-44.0); LYMPHOCYTE # 2.6 TH/MM3 (1.0-4.8); MEAN CELL VOLUME 98.5 FL (80.0-100.0); MEAN CORPUSCULAR HEMOGLOBIN 34.5 PG (27.0-34.0); MEAN CORPUSCULAR HGB CONC 35.1 % (32.0-36.0); MEAN PLATELET VOLUME 6.8 FL (7.0-11.0); MONO % 10.8 % (0.0-8.0); MONOCYTE # 0.9 TH/MM3 (0-0.9); PLATELET COUNT 363 TH/MM3 (150-450); RED BLOOD COUNT 3.15 MIL/MM3 (4.50-5.90); RED CELL DISTRIBUTION WIDTH 13.1 % (11.6-17.2); WHITE BLOOD COUNT 8.6 TH/MM3 (4.0-11.0)
[2017-08-24 17:41] LABS: BICARBONATE 25.3 MEQ/L (21.0-32.0); CALCIUM 8.7 MG/DL (8.5-10.1); CREATININE 0.77 MG/DL (0.60-1.30)
[2017-08-24] MEDS ORDERED: FOLI400T PO (18:52)
[2017-08-24] MEDS ORDERED: XARE20TA PO (18:52)
[2017-08-24] MEDS ORDERED: MULT-267 (18:52)
[2017-08-24] MEDS ORDERED: VITA100T10 (18:52)
[2017-08-24 18:53] VITALS: BP 142/71; PULSE 74; RESP 18; O2SAT 100
--- NOTE | 2017-08-24 18:59 | PD ---
HPI Chief Complaint: Edema Time Seen by Provider: 18:41 Travel History International Travel<30 days: No Contact w/Intl Traveler<30days: No Traveled to known affect area: No History of Present Illness HPI 57-year-old male presents emergency department complaining of bilateral lower leg swelling that has been going on for 1 week. States that he has been elevating his legs but this has not helped his efforts. States that he does have history of clots but is unable to tell me what kind of clots these were. States he follows Dr. Osman, his primary care physician, and does regular blood work but is unable to tell me more information about this. Patient says he does smoke but is unsure if he has COPD. Patient denies chronic heart issues. Denies chest pain, shortness of breath, abdominal pain, back pain. States he is compliant with medication which includes Xarelto 20 mg daily. PFSH Past Medical History Hx Anticoagulant Therapy: Yes (XARELTO) Asthma: No Autoimmune Disease: No Blood Disorders: Yes Anxiety: No Depression: No Heart Rhythm Problems: No Cancer: No Cardiovascular Problems: No High Cholesterol: No Chemotherapy: No Chest Pain: No Congestive Heart Failure: No COPD: No Diabetes: No Diminished Hearing: No Endocrine: No Genitourinary: No Immune Disorder: No Musculoskeletal: Yes (weak legs clots in left and hx clots in right leg) Neurologic: No Psychiatric: No Reproductive: No Respiratory: Yes (hx of lung clots, lung collapse) Immunizations Current: Yes Radiation Therapy: No Sleep Apnea: No Thyroid Disease: No Tetanus Vaccination: < 5 Years Influenza Vaccination: Yes Past Surgical History Pacemaker: No Other Surgery: Yes (ANAL SURGERY, HEAD SURGERY (denies 01/06/17)) Social History Alcohol Use: No Tobacco Use: Yes (1/4 pack) Substance Use: No Allergies-Medications (Allergen,Severity, Reaction): Coded Allergies: No Known Allergies (Unverified Adverse Reaction, Unknown, 08/24/17) Reported Meds & Prescriptions Reported Meds & Active Scripts Active Lasix (Furosemide) 20 Mg Tab 20 Mg PO DAILY 3 Days Reported Folic Acid 0.4 Mg Tab 400 Mcg PO DAILY B6 Natural (Pyridoxine HCl) 100 Mg Tab Men's Multi-Vitamin (Multivitamin) 1 Each Tablet Xarelto (Rivaroxaban) 20 Mg Tab 20 Mg PO DAILY Review of Systems Except as stated in HPI: all other systems reviewed are Neg Physical Exam Narrative GENERAL: WD, WN in NAD SKIN: Warm and dry. HEAD: Atraumatic. Normocephalic. EYES: Pupils equal and round. No scleral icterus. No injection or drainage. ENT: No nasal bleeding or discharge. Mucous membranes pink and moist. NECK: Trachea midline. No JVD. CARDIOVASCULAR: Regular rate and rhythm. RESPIRATORY: No accessory muscle use. Clear to auscultation. Breath sounds equal bilaterally. GASTROINTESTINAL: Abdomen soft, non-tender, nondistended. Hepatic and splenic margins not palpable. MUSCULOSKELETAL: Extremities without clubbing, cyanosis, or edema. No obvious deformities. NEUROLOGICAL: Awake and alert. No obvious cranial nerve deficits. Motor grossly within normal limits. Five out of 5 muscle strength in the arms and legs. Normal speech. PSYCHIATRIC: Appropriate mood and affect; insight and judgment normal. Data Data Last Documented VS Vital Signs Date Time Temp Pulse Resp B/P (MAP) Pulse Ox O2 Delivery O2 Flow Rate FiO2 08/24/17 21:16 08/24/17 18:53 74 18 100 Room Air 08/24/17 16:11 98.2 Orders Orders Complete Blood Count With Diff (08/24/17 16:16) Basic Metabolic Panel (Bmp) (08/24/17 16:16) B-Type Natriuretic Peptide (08/24/17 16:16) Electrocardiogram (08/24/17 ) Chest, Pa & Lat (08/24/17 ) Us Leg Venous Doppler Bilat (08/24/17 ) Ed Discharge Order (08/24/17 20:45) Labs Laboratory Tests Test 08/24/17 16:40 White Blood Count 8.6 TH/MM3 Red Blood Count 3.15 MIL/MM3 Hemoglobin 10.9 GM/DL Hematocrit 31.0 % Mean Corpuscular Volume 98.5 FL Mean Corpuscular Hemoglobin 34.5 PG Mean Corpuscular Hemoglobin Concent 35.1 % Red Cell Distribution Width 13.1 % Platelet Count 363 TH/MM3 Mean Platelet Volume 6.8 FL Neutrophils (%) (Auto) 52.0 % Lymphocytes (%) (Auto) 30.6 % Monocytes (%) (Auto) 10.8 % Eosinophils (%) (Auto) 4.7 % Basophils (%) (Auto) 1.9 % Neutrophils # (Auto) 4.5 TH/MM3 Lymphocytes # (Auto) 2.6 TH/MM3 Monocytes # (Auto) 0.9 TH/MM3 Eosinophils # (Auto) 0.4 TH/MM3 Basophils # (Auto) 0.2 TH/MM3 CBC Comment DIFF FINAL Differential Comment Blood Urea Nitrogen 6 MG/DL Creatinine 0.77 MG/DL Random Glucose 92 MG/DL Calcium Level 8.7 MG/DL Sodium Level 131 MEQ/L Potassium Level 3.7 MEQ/L Chloride Level 99 MEQ/L Carbon Dioxide Level 25.3 MEQ/L Anion Gap 7 MEQ/L Estimat Glomerular Filtration Rate 105 ML/MIN B-Type Natriuretic Peptide 102 PG/ML MDM Medical Decision Making Medical Screen Exam Complete: Yes Emergency Medical Condition: Yes Differential Diagnosis Acute DVT, noncompliance, congestive heart failure Narrative Course 57-year-old male presents emergency department complaining of bilateral lower leg swelling that has been going on for 1 week. States that he has been elevating his legs but this has not helped his efforts. States that he does have history of clots but is unable to tell me what kind of clots these were. States he follows Dr. Osman, his primary care physician, and does regular blood work but is unable to tell me more information about this. Patient says he does smoke but is unsure if he has COPD. Patient denies chronic heart issues. Denies chest pain, shortness of breath, abdominal pain, back pain. States he is compliant with medication which includes Xarelto 20 mg daily. Vital signs stable. EKG shows Sinus rhythm without STEMI changes Physical exam findings with b/l lower extremity edema (+1-2 pitting edema), quirino's sign negative. US ordered to determine the extend of his DVTs. Last Impressions Lower Extremity Ultrasound 08/24/17 0000 Signed Impressions: Service Date/Time: Thursday, August 24, 2017 19:40 - CONCLUSION: 1. There is nonocclusive DVT involving the left lower extremity. 2. No DVT of the right lower extremity. Eliud Ding MD Chest X-Ray 08/24/17 0000 Signed Impressions: Service Date/Time: Thursday, August 24, 2017 16:28 - CONCLUSION: Hyperinflation with mild progression of the parenchymal changes right lower lobe.. Slick Obrien MD FACR His BNP is 102, mildly positive. I don't believe that he has an acute CHF exacerbation as he denies cough, SOB, chest pain. Denies orthopnea. After review the EMR, it appears that patient has a factor V Leiden deficiency. He has had DVTs extending back to 2011 and I do not see evidence of resolution of these DVTs. Patient adamantly denies cardiac or pulmonary issues. Pt advised to continue his Xarelto. He has a non occlusive DVT left lower extremity. Lasix x3 days at home for pedal edema. Follow up with his PCP this week. Diagnosis Primary Impression: Deep vein thrombosis (DVT) of left lower extremity Qualified Codes: I82.4Z2 - Acute embolism and thrombosis of unspecified deep veins of left distal lower extremity Additional Impression: Leg swelling Referrals: Hydrotherapist Oncologist Additional Instructions: Follow-up with her primary care physician this week. Take Lasix as prescribed. The advised that Lasix may increase your urine I do recommend you take this medication in the morning. Elevate your legs above your heart every time you are sitting. Consider compression stockings to reduce the swelling of your legs. If your symptoms worsen or persist return to the emergency department.. Scripts Furosemide (Lasix) 20 Mg Tab 20 MG PO DAILY for 3 Days, #3 TAB 0 Refills Prov: Pam Ann 08/24/17 Disposition: 01 DISCHARGE HOME Condition: Stable Pam Ann Aug 24, 2017 18:59
--- NOTE | 2017-08-24 20:15 | RADRPT ---
EXAM DATE/TIME: 08/24/2017 19:40 [facility] COMPARISON: US LEG BILATERAL VENOUS DOPPLER, May 31, 2015, 15:34. INDICATIONS : Bilateral leg swelling. MEDICAL HISTORY : Deep venous thrombosis. Tobacco use. Depression. Anxiety. MRSA. SURGICAL HISTORY : Blood transfusions. Anal surgery. Head surgery. ENCOUNTER: Subsequent ACUITY: 1 day PAIN SCORE: 3/10 LOCATION: Bilateral legs. TECHNIQUE: Venous ultrasound of the left and right leg was performed from the inguinal ligament to the proximal calf. Real-time, color Doppler and spectral tracing, compression and augmentation techniques were us ed. FINDINGS: RIGHT LEG: There is normal compressibility of the deep venous system from the inguinal region to the proximal ca lf. No echogenic clot is seen in the lumen of the common femoral, femoral, popliteal, and posterior tibial veins. There is a normal response of the venous system to proximal and distal augmentation an d respiration. LEFT LEG: On the examination left leg there is nonocclusive thrombus seen in the deep venous system extending f rom the proximal superficial femoral vein down to the peroneal vein in the calf. There is edema in th e soft tissues of the left calf. CONCLUSION: 1. There is nonocclusive DVT involving the left lower extremity. 2. No DVT of the right lower extremity. Eliud Ding MD on August 24, 2017 at 20:12 Board Certified Radiologist. This report was verified electronically.
[2017-08-24] MEDS ORDERED: FURO1TAB62 PO (20:45)
--- NOTE | 2017-08-25 16:01 | EKG ---
Date Performed: 08/24/2017 Time Performed: 16:37:05 PTAGE: 57 years EKG: Sinus rhythm POSSIBLE RIGHT ATRIAL ENLARGEMENT POSSIBLE LEFT ATRIAL ENLARGEMENT BORDERLINE ECG Since the prior tr acing, there has been no significant change PREVIOUS TRACING : 01/06/2017 17.24 DOCTOR: Ángel Martinez Interpretating Date/Time 08/25/2017 15:59:43
== END 2017-08-24 21:15 | disposition home or self-care (01) ==
LOC: NEPC 16:09
DX: I82.4Z2 Acute embolism and thrombosis of unspecified deep veins of left distal lower extremity (principal); D68.51 Activated protein C resistance; R06.02 Shortness of breath; Z72.0 Tobacco use; Z79.01 Long term (current) use of anticoagulants; Z79.899 Other long term (current) drug therapy
CPT/HCPCS: 71046; 80048; 83880; 85025; 93005; 93970

== ENCOUNTER 2017-11-15 22:40 | Emergency (ER) | payer OTHER ==
[~2017-11-15] VITALS: Ht 175.3 cm; Wt 73.0 kg
[~2017-11-15 22:40] MED LIST changes: -COUM5TAB PO; -ENOX100P SQ; +FOLI400T PO; +FURO1TAB62 PO; +MULT-267; +VITA100T10; +XARE20TA PO
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
[2017-11-15 22:48] VITALS: BP 149/73; PULSE 90; RESP 16; TEMP 98.8; O2SAT 99
[2017-11-15] MEDS ORDERED: TETANUS/DIPHTHERIA TOXOID ADULT 0.5 ML VIAL IM ONE (23:00)
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
[2017-11-15] MEDS ORDERED: TRAM50 PO (23:35)
--- NOTE | 2017-11-16 01:50 | PD ---
Physical Exam Time Seen by Provider: 01:48 Data Data Last Documented VS Vital Signs Date Time Temp Pulse Resp B/P (MAP) Pulse Ox O2 Delivery O2 Flow Rate FiO2 11/15/17 22:48 98.8 90 16 149/73 (98) [address] Brain W/O Iv Contrast(Rout) (11/15/17 22:48) Ct Cerv Spine W/O Contrast (11/15/17 22:48) Ct Facial Bones W/O Iv Cont (11/15/17 22:48) Tetanus/Diphtheria Tox Adult (Tetanus/Di (11/15/17 23:00) MDM Medical Record Reviewed: Yes Supervised Visit with ALONZO: No Procedures Procedure Narrative LACERATION LOCATION: Left parietal scalp LENGTH: 5 cm NUMBER OF STITCHES/RAMONA: 5 ramona REPAIR: The area of the laceration was prepped with Betadine and sterilely draped. The wound was copiously irrigated and explored without evidence of foreign body, tendon injury or neurovascular injury. The wound was closed using ramona. This was a single layer repair. A sterile dressing was applied. The patient was advised to keep the dressing clean and dry. Patient tolerated the procedure well. LACERATION LOCATION: Left forehead LENGTH: 2 cm NUMBER OF STITCHES/RAMONA: Dermabond skin adhesive and Steri-Strips REPAIR: The area of the laceration was prepped with Betadine and sterilely draped. The wound was copiously irrigated and explored without evidence of foreign body, tendon injury or neurovascular injury. The wound was closed using Dermabond skin adhesive and Steri-Strips. This was a single layer repair. A sterile dressing was applied. The patient was advised to keep the dressing clean and dry. Patient tolerated the procedure well. LACERATION LOCATION: Forehead LENGTH: [2 cm NUMBER OF STITCHES/RAMONA: Dermabond skin adhesive REPAIR: The area of the laceration was prepped with Betadine and sterilely draped. The wound was copiously irrigated and explored without evidence of foreign body, tendon injury or neurovascular injury. The wound was closed using Dermabond skin adhesive. This was a single layer repair. A sterile dressing was applied. The patient was advised to keep the dressing clean and dry. Patient tolerated the procedure well. LACERATION LOCATION: Left cheek LENGTH: 1 cm NUMBER OF STITCHES/RAMONA: Dermabond skin adhesive REPAIR: The area of the laceration was prepped with Betadine and sterilely draped. The wound was copiously irrigated and explored without evidence of foreign body, tendon injury or neurovascular injury. The wound was closed using Dermabond. This was a single layer repair. A sterile dressing was applied. The patient was advised to keep the dressing clean and dry. Patient tolerated the procedure well. Diagnosis Primary Impression: Cephalhematoma Additional Impression: Facial hematoma Patient Instructions: General Instructions, Facial Contusion (ED), Facial Laceration (ED) Scripts Tramadol (Ultram) 50 Mg Tab 50 MG PO Q8H Y for PAIN, #12 TAB 0 Refills Prov: Neto Barnhart MD 11/15/17 Disposition: 01 DISCHARGE HOME Condition: Stable Joslyn Huddleston Nov 16, 2017 01:50
== END 2017-11-16 04:41 | disposition home or self-care (01) ==
LOC: NEPE 22:40
DX: S01.81XA Laceration without foreign body of other part of head, initial encounter (principal); S01.412A Laceration without foreign body of left cheek and temporomandibular area, initial encounter; S01.01XA Laceration without foreign body of scalp, initial encounter; S00.83XA Contusion of other part of head, initial encounter; J32.0 Chronic maxillary sinusitis; M50.321 Other cervical disc degeneration at C4-C5 level; M50.323 Other cervical disc degeneration at C6-C7 level; Y04.2XXA Assault by strike against or bumped into by another person, initial encounter; Z23 Encounter for immunization
CPT/HCPCS: 12002; 12013; 70450; 70486; 72125; 90471; 90714